=== PATIENT | male | born 1975 | race Caucasian/White ===

== ENCOUNTER 2021-01-09 08:05 | Emergency (ER) | payer OTHER ==
[~2021-01-09] VITALS: Ht 182.9 cm; Wt 104.2 kg
[2021-01-09] MEDS ORDERED: ALEV220T22 PO (08:25)
--- NOTE | 2021-01-09 08:57 | REP ---
INDICATION: left rib pain. COMPARISON: None TECHNIQUE: Four views of the ribs with a frontal view of the chest FINDINGS: Four views of the left ribs show the 8th and 9th ribs to be fractured. The accompanying frontal view the chest is within normal limits. IMPRESSION: Negative rib series. Left 8th and 9th rib fractures. <Electronically signed by Javi Gilbert > 01/09/21 0853
[2021-01-09 09:49] VITALS: BP 157/89
[2021-01-09] MEDS ORDERED: HYDR-3713 PO (09:51)
== END 2021-01-09 10:06 | disposition home or self-care (01) ==
LOC: M ED 08:05
DX: S22.42XA Multiple fractures of ribs, left side, initial encounter for closed fracture (principal); X58.XXXA Exposure to other specified factors, initial encounter; Y92.89 Other specified places as the place of occurrence of the external cause; Y93.89 Activity, other specified; Y99.8 Other external cause status; F17.200 Nicotine dependence, unspecified, uncomplicated

== ENCOUNTER 2023-04-16 11:42 | Emergency (ER) | payer OTHER ==
[~2023-04-16] VITALS: Ht 182.9 cm; Wt 79.7 kg
[~2023-04-16 11:42] MED LIST: ALEV220T22 PO; HYDR-3713 PO
[2023-04-16 11:43] VITALS: O2SAT 98
[2023-04-16] MEDS ORDERED: LIDOCAINE W/EPINEPHRINE 1% 20ML VIAL SC ONE (14:50)
[2023-04-16] MEDS ORDERED: BOOSTRIX VACCINE (TETANUS/DIPHTH/ACEL. PERTUSSIS) 0.5ML SYR IM.IMMUN ONE (14:50)
[2023-04-16] MEDS ORDERED: CEPH500C PO (16:15)
[2023-04-16 16:27] VITALS: BP 162/95; TEMP 98.2
== END 2023-04-16 16:25 | disposition home or self-care (01) ==
LOC: M ED 11:42
DX: S61.213A Laceration without foreign body of left middle finger without damage to nail, initial encounter (principal); S61.215A Laceration without foreign body of left ring finger without damage to nail, initial encounter; W26.0XXA Contact with knife, initial encounter; Y92.009 Unspecified place in unspecified non-institutional (private) residence as the place of occurrence of the external cause; Y93.G1 Activity, food preparation and clean up; Y99.8 Other external cause status

== ENCOUNTER 2024-07-20 17:58 | Inpatient (IN) | payer OTHER ==
[~2024-07-20] VITALS: Ht 182.9 cm; Wt 84.2 kg
[~2024-07-20 17:58] MED LIST changes: +CEPH500C PO
[2024-07-20 18:53] LABS: BASO # 0.2 10^3/uL (0.0-0.2); BASO % 1.8 % (0.0-1.0); EOS # 0.3 10^3/uL (0.0-0.5); EOS % 2.7 % (0.0-3.0); HEMATOCRIT 32.5 % (42.0-52.0); HEMOGLOBIN 11.3 g/dl (13.5-17.5); LYMPH # 2.6 10^3/uL (1.5-5.0); LYMPH % 23.3 % (24.0-44.0); MEAN CORPUSCULAR HEMOGLOBIN 35.1 pg (27.0-33.0); MEAN CORPUSCULAR HGB CONC 34.8 g/dl (32.0-36.5); MEAN CORPUSCULAR VOLUME 100.9 fl (80.0-96.0); MONO # 1.2 10^3/uL (0.0-0.8); MONO % 10.6 % (2.0-8.0); NEUTROPHILS # 6.7 10^3/uL (1.5-8.5); NEUTROPHILS % 59.4 % (36.0-66.0); PLATELET COUNT, AUTOMATED 216 10^3/uL (150-450); RED BLOOD COUNT 3.22 10^6/uL (4.30-6.10); WHITE BLOOD COUNT 11.3 10^3/uL (4.0-10.0)
[2024-07-20 19:33] LABS: PROCALCITONIN 0.56 ng/ml
[2024-07-20 19:41] LABS: HEPATITIS B SURFACE ANTIGEN NEGATIVE (NEGATIVE)
[2024-07-20 20:00] LABS: ALBUMIN 1.8 G/DL (3.2-5.2); ALKALINE PHOSPHATASE 217 U/L (40-129); ALT/SGPT 66 U/L (7.0-40); AST/SGOT 148 U/L (<34); BILIRUBIN,DIRECT 11.4 MG/DL (<0.4); BILIRUBIN,TOTAL 14.8 MG/DL (0.3-1.2); BLOOD UREA NITROGEN 11 MG/DL (9-23); CALCIUM LEVEL 7.7 MG/DL (8.5-10.1); CARBON DIOXIDE LEVEL 27 MMOL/L (20-31); CHLORIDE LEVEL 102 MMOL/L (98-107); CREATININE FOR GFR 0.73 MG/DL (0.70-1.30); GLOMERULAR FILTRATION RATE > 60.0 (>60); GLUCOSE, FASTING 115 MG/DL (60-100); SODIUM LEVEL 134 MMOL/L (136-145); TOTAL PROTEIN 5.8 G/DL (5.7-8.2)
[2024-07-20 20:02] LABS: HEPATITIS B CORE ANTIBODY IGM NEGATIVE (NEGATIVE); HEPATITIS C VIRUS ABY INDEX 0.18 INDEX (<0.8)
[2024-07-20] MEDS ORDERED: ISOVUE-370 76% 100ML VIAL As Ordered ONE (20:11)
[2024-07-20 22:41] LABS: LIPASE 46 U/L (12-53)
[2024-07-20] MEDS: MORPHINE 4 MG/ML 1ML VIAL IV ONE (22:49)
[2024-07-20] MEDS: ONDANSETRON 4MG 2ML VIAL IV ONE (22:59)
[2024-07-21] MEDS: MORPHINE 2 MG/ML 1ML VIAL IV ONE (00:20)
[2024-07-21 00:43] LABS: INR 1.21; PROTHROMBIN TIME 15.6 SECONDS (12.5-14.5)
[2024-07-21] MEDS ORDERED: HOME MED LIST COMPLETE! XX SCH (00:55)
[2024-07-21 03:53] LABS: FERRITIN 832.2 NG/ML (10.5-307.3)
[2024-07-21 04:00] VITALS: BP 118/80; TEMP 97.5; O2SAT 97
[2024-07-21] MEDS: LR 1,000 ML IV SCH (04:23)
[2024-07-21] MEDS: KETOROLAC 30 MG/ML 1ML VIAL IV ONE (04:42)
[2024-07-21] MEDS: RAMELTEON 8 MG TAB (ROZEREM) PO PRN (04:42)
[2024-07-21 06:03] LABS: HEMATOCRIT 29.5 % (42.0-52.0); HEMOGLOBIN 10.3 g/dl (13.5-17.5); MEAN CORPUSCULAR HGB CONC 34.9 g/dl (32.0-36.5); MEAN CORPUSCULAR VOLUME 100.3 fl (80.0-96.0); PLATELET COUNT, AUTOMATED 206 10^3/uL (150-450); RED BLOOD COUNT 2.94 10^6/uL (4.30-6.10); WHITE BLOOD COUNT 10.3 10^3/uL (4.0-10.0)
[2024-07-21 06:25] LABS: LIPASE 35 U/L (12-53)
[2024-07-21 07:52] LABS: ALBUMIN 1.6 G/DL (3.2-5.2); ALKALINE PHOSPHATASE 196 U/L (40-129); ALT/SGPT 62 U/L (7.0-40); AST/SGOT 135 U/L (<34); BLOOD UREA NITROGEN 11 MG/DL (9-23); CALCIUM LEVEL 7.5 MG/DL (8.5-10.1); CARBON DIOXIDE LEVEL 24 MMOL/L (20-31); CHLORIDE LEVEL 105 MMOL/L (98-107); CREATININE FOR GFR 0.67 MG/DL (0.70-1.30); GLOMERULAR FILTRATION RATE > 60.0 (>60); GLUCOSE, FASTING 97 MG/DL (60-100); POTASSIUM SERUM 3.7 MMOL/L (3.5-5.1); SODIUM LEVEL 135 MMOL/L (136-145); TOTAL PROTEIN 5.4 G/DL (5.7-8.2)
[2024-07-21] MEDS: NICOTINE 21MG/24HR 1 EA TRANSDERMAL TD SCH (09:00)
[2024-07-21] MEDS ORDERED: predniSONE 20 MG TAB PO SCH (09:00)
[2024-07-21] MEDS ORDERED: HEPARIN SOD (PORCINE) 5000UNITS/ML 1ML VIAL/SYRINGE SQ SCH (09:00)
[2024-07-21] MEDS: DOCUSATE SODIUM 100MG CAPSULE PO SCH (09:12)
[2024-07-21] MEDS: THIAMINE 200MG 2ML VIAL IV SCH (09:13)
[2024-07-21] MEDS: CYANOCOBALAMIN 1,000MCG/ML 1ML VIAL IM SCH (09:25)
[2024-07-21] MEDS: FOLIC ACID 1 MG in NS 50 ML IV SCH (09:52)
[2024-07-21] MEDS: ENOXAPARIN 100MG/1ML SYRINGE (J1650 PER 10MG) SC SCH (09:52)
[2024-07-21] MEDS: prednisoLONE (PRELONE) 15MG/5ML SYRUP UDC PO SCH (10:46)
[2024-07-21 12:00] VITALS: BP 111/62; TEMP 97.7; O2SAT 98
[2024-07-21 17:34] VITALS: BP 126/84; TEMP 97.5; O2SAT 99
[2024-07-21 19:08] LABS: IRON (FE) 150 UG/DL (65-175)
[2024-07-21 19:09] LABS: FERRITIN 1017.8 NG/ML (10.5-307.3)
[2024-07-21 19:10] LABS: FOLATE 12.17 NG/ML (>5.4)
[2024-07-21 19:17] LABS: PERCENT SATURATION 70.8 % (19.7-50.0); TOTAL IRON BINDING CAPACITY 212 UG/DL (250-425); VITAMIN B12 LEVEL > 2000 PG/ML (211-911)
[2024-07-21 19:44] VITALS: BP 132/68; TEMP 97.8
[2024-07-21 20:00] VITALS: BP 124/76; TEMP 97.9; O2SAT 99
[2024-07-22] VITALS (10 sets, daily range): BP systolic 112–167; BP diastolic 68–84; TEMP 97.7–98.1; O2SAT 96–99
[2024-07-22 06:43] LABS: HEMOGLOBIN 11.8 g/dl (13.5-17.5); MEAN CORPUSCULAR HEMOGLOBIN 34.9 pg (27.0-33.0); MEAN CORPUSCULAR HGB CONC 34.7 g/dl (32.0-36.5); MEAN CORPUSCULAR VOLUME 100.6 fl (80.0-96.0); PLATELET COUNT, AUTOMATED 231 10^3/uL (150-450); RED BLOOD COUNT 3.38 10^6/uL (4.30-6.10); WHITE BLOOD COUNT 13.4 10^3/uL (4.0-10.0)
[2024-07-22 07:00] LABS: ALBUMIN 2.1 G/DL (3.2-5.2); ALKALINE PHOSPHATASE 195 U/L (40-129); ALT/SGPT 71 U/L (7.0-40); AST/SGOT 150 U/L (<34); BILIRUBIN,TOTAL 12.5 MG/DL (0.3-1.2); BLOOD UREA NITROGEN 11 MG/DL (9-23); CALCIUM LEVEL 8.3 MG/DL (8.5-10.1); CARBON DIOXIDE LEVEL 24 MMOL/L (20-31); CHLORIDE LEVEL 105 MMOL/L (98-107); CREATININE FOR GFR 0.59 MG/DL (0.70-1.30); GLOMERULAR FILTRATION RATE > 60.0 (>60); GLUCOSE, FASTING 80 MG/DL (60-100); SODIUM LEVEL 135 MMOL/L (136-145); TOTAL PROTEIN 6.3 G/DL (5.7-8.2)
[2024-07-22] MEDS: ENOXAPARIN 40MG/0.4ML SYRINGE (J1650 PER 10MG) SC SCH (09:41)
[2024-07-23] VITALS (11 sets, daily range): BP systolic 121–139; BP diastolic 74–91; TEMP 97.5–98.1; O2SAT 97–99
[2024-07-23 06:57] LABS: HEMATOCRIT 32.3 % (42.0-52.0); HEMOGLOBIN 11.2 g/dl (13.5-17.5); MEAN CORPUSCULAR HEMOGLOBIN 34.6 pg (27.0-33.0); MEAN CORPUSCULAR HGB CONC 34.7 g/dl (32.0-36.5); MEAN CORPUSCULAR VOLUME 99.7 fl (80.0-96.0); PLATELET COUNT, AUTOMATED 208 10^3/uL (150-450); RED BLOOD COUNT 3.24 10^6/uL (4.30-6.10); WHITE BLOOD COUNT 10.6 10^3/uL (4.0-10.0)
[2024-07-23 07:26] LABS: ALBUMIN 2.3 G/DL (3.2-5.2); ALKALINE PHOSPHATASE 191 U/L (40-129); ALT/SGPT 64 U/L (7.0-40); AST/SGOT 133 U/L (<34); BLOOD UREA NITROGEN 9 MG/DL (9-23); CALCIUM LEVEL 8.4 MG/DL (8.5-10.1); CARBON DIOXIDE LEVEL 24 MMOL/L (20-31); CHLORIDE LEVEL 104 MMOL/L (98-107); CREATININE FOR GFR 0.57 MG/DL (0.70-1.30); GLOMERULAR FILTRATION RATE > 60.0 (>60); GLUCOSE, FASTING 80 MG/DL (60-100); POTASSIUM SERUM 4.4 MMOL/L (3.5-5.1); SODIUM LEVEL 136 MMOL/L (136-145); TOTAL PROTEIN 5.8 G/DL (5.7-8.2)
[2024-07-24 04:00] VITALS: BP 130/80; TEMP 97.5; O2SAT 100
[2024-07-24 06:42] LABS: HEMATOCRIT 38.4 % (42.0-52.0); MEAN CORPUSCULAR HEMOGLOBIN 34.7 pg (27.0-33.0); MEAN CORPUSCULAR HGB CONC 34.4 g/dl (32.0-36.5); MEAN CORPUSCULAR VOLUME 101.1 fl (80.0-96.0); PLATELET COUNT, AUTOMATED 223 10^3/uL (150-450); WHITE BLOOD COUNT 10.1 10^3/uL (4.0-10.0)
[2024-07-24 06:43] LABS: HEMOGLOBIN 13.2 g/dl (13.5-17.5)
[2024-07-24 07:14] LABS: ALBUMIN 2.7 G/DL (3.2-5.2); ALKALINE PHOSPHATASE 192 U/L (40-129); ALT/SGPT 69 U/L (7.0-40); AST/SGOT 144 U/L (<34); BILIRUBIN,TOTAL 10.7 MG/DL (0.3-1.2); BLOOD UREA NITROGEN 8 MG/DL (9-23); CALCIUM LEVEL 8.7 MG/DL (8.5-10.1); CARBON DIOXIDE LEVEL 26 MMOL/L (20-31); CHLORIDE LEVEL 103 MMOL/L (98-107); GLOMERULAR FILTRATION RATE > 60.0 (>60); GLUCOSE, FASTING 79 MG/DL (60-100); POTASSIUM SERUM 4.2 MMOL/L (3.5-5.1); SODIUM LEVEL 137 MMOL/L (136-145); TOTAL PROTEIN 6.5 G/DL (5.7-8.2)
[2024-07-24 11:32] LABS: CYTOMEGALOVIRUS IgM ANTIBODY < 30.00 AU/mL (<30.00)
[2024-07-24 12:00] VITALS: BP 140/89; TEMP 98.1; O2SAT 100
[2024-07-24] MEDS ORDERED: COLA100C5 PO (13:41)
[2024-07-24] MEDS ORDERED: NICO21PAT TD (13:41)
[2024-07-24] MEDS ORDERED: MULT-90 PO (13:41)
[2024-07-24] MEDS ORDERED: THIA100T7 PO (13:41)
[2024-07-25 18:52] LABS: EBV PCR QUANTITATIVE Not Detected copies/mL; EBV SOURCE Whole Blood; log10 EBV DNA QN PCR Not Detected Log cps/mL
[2024-07-26 01:08] LABS: APTT APSCOMP 40 sec (<=40); DRVTT Screen Seconds 34 sec (<=45)
[2024-07-26 08:11] LABS: ANTI-SMOOTH MUSCLE ANTIBODY < 20 U (<20)
[2024-07-26 08:27] LABS: Anticardiolipin Ab, IGG < 2.0 GPL-U/mL (<20.0); Anticardiolipin Ab, IGM < 2.0 MPL-U/mL (<20.0); Anticardiolipin Ab, IgA < 2.0 APL-U/mL (<20.0); Beta-2 GLYCOPROTEIN I, IGG < 2.0 U/mL (<20.0); Beta-2 Glycoprotein I, IGA < 2.0 U/mL (<20.0); Beta-2 Glycoprotein I, IGM < 2.0 U/mL (<20.0)
[2024-07-27 01:17] LABS: ANTI-MITOCHONDRIAL ANTIBODY Negative (Negative); LIVER-KIDNEY MICROSOMAL ABY <= 20.0 U (<=20.0)
== END 2024-07-24 14:20 | disposition home or self-care (01) | DRG 280 ==
LOC: M ED 17:58 → M ED INP 07-21 02:51 → M MS5PR 07-21 04:15
PROVIDERS: ADMIT Student in an Organized Health Care Education/Training Program; ATTEND Internal Medicine
PROC: 30233J1 Transfusion of Nonautologous Serum Albumin into Peripheral Vein, Percutaneous Approach (ICD-10-PCS; principal; 2024-07-21)
DX: K70.11 Alcoholic hepatitis with ascites (principal); I82.0 Budd-Chiari syndrome; E80.6 Other disorders of bilirubin metabolism; N49.2 Inflammatory disorders of scrotum; F17.200 Nicotine dependence, unspecified, uncomplicated; R79.89 Other specified abnormal findings of blood chemistry; N43.3 Hydrocele, unspecified; F10.188 Alcohol abuse with other alcohol-induced disorder; D53.9 Nutritional anemia, unspecified; Z11.52 Encounter for screening for COVID-19

== ENCOUNTER 2024-07-26 21:38 | Emergency (ER) | payer OTHER ==
[~2024-07-26] VITALS: Ht 180.3 cm; Wt 83.2 kg
[~2024-07-26 21:38] MED LIST changes: +COLA100C5 PO; +MULT-90 PO; +NICO21PAT TD; +THIA100T7 PO
[2024-07-26 22:43] LABS: BASO # 0.2 10^3/uL (0.0-0.2); BASO % 1.5 % (0.0-1.0); EOS # 0.5 10^3/uL (0.0-0.5); EOS % 4.5 % (0.0-3.0); HEMATOCRIT 33.4 % (42.0-52.0); HEMOGLOBIN 11.2 g/dl (13.5-17.5); LYMPH # 2.5 10^3/uL (1.5-5.0); LYMPH % 21.6 % (24.0-44.0); MEAN CORPUSCULAR HEMOGLOBIN 34.7 pg (27.0-33.0); MEAN CORPUSCULAR HGB CONC 33.5 g/dl (32.0-36.5); MEAN CORPUSCULAR VOLUME 103.4 fl (80.0-96.0); MONO # 1.1 10^3/uL (0.0-0.8); MONO % 9.2 % (2.0-8.0); PLATELET COUNT, AUTOMATED 167 10^3/uL (150-450); RED BLOOD COUNT 3.23 10^6/uL (4.30-6.10); WHITE BLOOD COUNT 11.4 10^3/uL (4.0-10.0)
[2024-07-26 23:09] LABS: LIPASE 45 U/L (12-53)
[2024-07-26 23:12] LABS: CPK CREATINE PHOSPHOKINASE 59 U/L (46-171)
[2024-07-26 23:43] LABS: ALBUMIN 2.2 G/DL (3.2-5.2); ALKALINE PHOSPHATASE 186 U/L (40-129); ALT/SGPT 72 U/L (7.0-40); AST/SGOT 139 U/L (<34); BILIRUBIN,DIRECT 5.9 MG/DL (<0.4); BILIRUBIN,TOTAL 7.2 MG/DL (0.3-1.2); BLOOD UREA NITROGEN 17 MG/DL (9-23); CALCIUM LEVEL 8.3 MG/DL (8.5-10.1); CARBON DIOXIDE LEVEL 25 MMOL/L (20-31); CHLORIDE LEVEL 107 MMOL/L (98-107); CK-MB VALUE MASS < 1.0 NG/ML (<3.6); CREATININE FOR GFR 1.22 MG/DL (0.70-1.30); GLOMERULAR FILTRATION RATE > 60.0 (>60); GLUCOSE, FASTING 88 MG/DL (60-100); MB/CK RELATIVE INDEX 1.69 (< OR =4); POTASSIUM SERUM 4.4 MMOL/L (3.5-5.1); SODIUM LEVEL 136 MMOL/L (136-145); THYROID STIMULATING HORMONE 3.942 uIU/ML (0.55-4.78); TOTAL PROTEIN 6.1 G/DL (5.7-8.2)
[2024-07-27] MEDS: GASTROGRAFIN SOLUTION 30ML PO SCH (00:11)
[2024-07-27 00:25] LABS: CK-MB VALUE MASS < 1.0 NG/ML (<3.6)
[2024-07-27 00:26] LABS: CPK CREATINE PHOSPHOKINASE 54 U/L (46-171); MB/CK RELATIVE INDEX 1.85 (< OR =4)
[2024-07-27 01:24] LABS: GC DNA AMPLIFICATION NEGATIVE (NEGATIVE)
[2024-07-27] MEDS ORDERED: ISOVUE-370 76% 100ML VIAL As Ordered ONE (01:39)
[2024-07-27] MEDS ORDERED: OXYC-517 PO (03:17)
[2024-07-27 03:29] VITALS: BP 128/79; TEMP 98.2; O2SAT 98
[2024-07-27] MEDS: oxyCODONE 5MG TAB PO ONE (03:31)
== END 2024-07-27 03:35 | disposition home or self-care (01) ==
LOC: M ED 21:38
DX: N43.3 Hydrocele, unspecified (principal); K70.11 Alcoholic hepatitis with ascites; R93.2 Abnormal findings on diagnostic imaging of liver and biliary tract; R59.9 Enlarged lymph nodes, unspecified; Z79.899 Other long term (current) drug therapy
CPT/HCPCS: 71046; 74177; 76870; 80048; 80076; 81001; 82550; 82553; 83690; 83880; 84439; 84443; 84484; 85025; 87810; 87850; 93005; 93041; 93970; 93976; 99285; Q9963; Q9967

== ENCOUNTER → 2024-08-07 | Outpatient (REF) | payer OTHER ==
[~2024-08-07] MED LIST changes: +OXYC-517 PO
[2024-08-08 12:33] LABS: HEMATOCRIT 39.8 % (42.0-52.0); HEMOGLOBIN 13.2 g/dl (13.5-17.5); MEAN CORPUSCULAR HEMOGLOBIN 33.8 pg (27.0-33.0); MEAN CORPUSCULAR HGB CONC 33.2 g/dl (32.0-36.5); MEAN CORPUSCULAR VOLUME 102.1 fl (80.0-96.0); PLATELET COUNT, AUTOMATED 169 10^3/uL (150-450); WHITE BLOOD COUNT 9.8 10^3/uL (4.0-10.0)
[2024-08-08 12:40] LABS: ALBUMIN 2.6 G/DL (3.2-5.2); ALKALINE PHOSPHATASE 170 U/L (40-129); ALT/SGPT 63 U/L (7.0-40); AST/SGOT 106 U/L (<34); BILIRUBIN,TOTAL 4.1 MG/DL (0.3-1.2); BLOOD UREA NITROGEN 14 MG/DL (9-23); CALCIUM LEVEL 8.9 MG/DL (8.5-10.1); CARBON DIOXIDE LEVEL 27 MMOL/L (20-31); CHLORIDE LEVEL 105 MMOL/L (98-107); CREATININE FOR GFR 0.67 MG/DL (0.70-1.30); GLOMERULAR FILTRATION RATE > 60.0 (>60); GLUCOSE, FASTING 87 MG/DL (60-100); POTASSIUM SERUM 4.3 MMOL/L (3.5-5.1); SODIUM LEVEL 136 MMOL/L (136-145); TOTAL PROTEIN 7.6 G/DL (5.7-8.2)
== END ==
LOC: M LAB REF 12:09
PROVIDERS: ATTEND Family Medicine Addiction Medicine
DX: K74.60 Unspecified cirrhosis of liver (principal)

== ENCOUNTER → 2024-10-02 | Outpatient (REF) | payer OTHER ==
[2024-10-02 11:51] LABS: HEMATOCRIT 44.1 % (42.0-52.0); MEAN CORPUSCULAR HEMOGLOBIN 31.1 pg (27.0-33.0); MEAN CORPUSCULAR VOLUME 91.3 fl (80.0-96.0); PLATELET COUNT, AUTOMATED 173 10^3/uL (150-450); RED BLOOD COUNT 4.83 10^6/uL (4.30-6.10); WHITE BLOOD COUNT 7.1 10^3/uL (4.0-10.0)
[2024-10-02 11:52] LABS: INR 1.06; PROTHROMBIN TIME 14.1 SECONDS (12.5-14.5)
[2024-10-02 11:59] LABS: ALBUMIN 3.5 G/DL (3.2-5.2); ALKALINE PHOSPHATASE 105 U/L (40-129); ALT/SGPT 16 U/L (7.0-40); AST/SGOT 28 U/L (<34); BILIRUBIN,TOTAL 0.9 MG/DL (0.3-1.2); BLOOD UREA NITROGEN 10 MG/DL (9-23); CALCIUM LEVEL 9.1 MG/DL (8.5-10.1); CARBON DIOXIDE LEVEL 28 MMOL/L (20-31); CHLORIDE LEVEL 107 MMOL/L (98-107); CREATININE FOR GFR 0.85 MG/DL (0.70-1.30); GLOMERULAR FILTRATION RATE > 60.0 (>60); GLUCOSE, FASTING 83 MG/DL (60-100); POTASSIUM SERUM 4.2 MMOL/L (3.5-5.1); SODIUM LEVEL 139 MMOL/L (136-145); TOTAL PROTEIN 7.7 G/DL (5.7-8.2)
== END ==
LOC: M LAB REF 11:31
PROVIDERS: ATTEND Family Medicine Addiction Medicine
DX: K74.60 Unspecified cirrhosis of liver (principal)

== ENCOUNTER → 2024-10-19 | Outpatient (CLI) | payer OTHER | LOC: M RAD 07:59 | PROVIDERS: ATTEND Family Medicine Addiction Medicine | DX: I82.0 Budd-Chiari syndrome (principal); K76.0 Fatty (change of) liver, not elsewhere classified; M16.0 Bilateral primary osteoarthritis of hip ==

== ENCOUNTER → 2025-04-04 | Outpatient (CLI) | payer OTHER | LOC: M CARPUL 08:28 | PROVIDERS: ATTEND Family Medicine Addiction Medicine | DX: R06.09 Other forms of dyspnea (principal) ==